=== PATIENT | male | born 1990 | race Two or more races ===

== ENCOUNTER 2022-05-26 18:58 | Emergency (ER) | payer OTHER ==
[~2022-05-26] VITALS: Ht 170.2 cm; Wt 86.0 kg
[2022-05-26 20:26] VITALS: BP 140/84
[2022-05-26] MEDS ORDERED: SODIUM CHLORIDE 0.9% 1,000 ML IV ONE (20:45)
[2022-05-26] MEDS ORDERED: ONDANSETRON HCL 4 MG/2 ML VIAL IV ONE (20:45)
[2022-05-26 21:19] LABS: Basophils # (auto) 0 10 ^3/uL (0-0.2); Basophils % (auto) 0.2 % (0.0-2.0); Eosinophils # (auto) 0 10 ^3/uL (0-0.8); Hematocrit 49.4 % (41.0-53.0); Hemoglobin 16.6 g/dL (13.5-17.5); Lymphocytes # (auto) 1.7 10 ^3/uL (0.4-5.4); Lymphocytes % (auto) 10.3 % (10.0-50.0); Mean Corpuscular Hemoglobin 30.3 pg (28.0-32.0); Mean Corpuscular Hgb Conc. 33.6 g/dL (32.0-36.0); Mean Corpuscular Volume 90.3 fL (80.0-100.0); Monocytes % (auto) 5.8 % (0.0-12.0); Neutrophils # (auto) 13.7 10 ^3/uL (1.6-8.6); Neutrophils % (auto) 83.7 % (37.0-80.0); Nucleated Red Blood Cells % 0.2 %; Red Blood Cells 5.47 10^6/uL (4.5-5.90); Red Cell Distribution Width 13.3 % (11.8-14.3); White Blood Cell 16.4 10^3/uL (4.4-10.8)
[2022-05-26 21:29] LABS: Albumin 4.6 g/dL (3.4-5.0); Calcium 9.7 mg/dL (8.5-10.1); Potassium 4.4 mmol/L (3.5-5.1)
[2022-05-26 21:31] LABS: Bilirubin, Total 0.6 mg/dL (0.2-1.0); Total Protein 7.8 g/dL (6.4-8.2)
[2022-05-26] MEDS ORDERED: MORPHINE SULFATE INJ 2 MG/ml SYRG IV ONE (22:00)
[2022-05-26] MEDS ORDERED: KETOROLAC TROMETH 30 MG/ML 1ML VIAL IV ONE (22:15)
[2022-05-26] MEDS ORDERED: HYDR-4902 PO (22:19)
== END 2022-05-26 22:18 | disposition left against medical advice (07) ==
LOC: ER 18:58
DX: N13.2 Hydronephrosis with renal and ureteral calculous obstruction (principal); N23 Unspecified renal colic
CPT/HCPCS: 36415; 74176; 80053; 84484; 85025; 93005; 96361; 96374; 96375; 99285; J1885; J2405; J7030; 80307; 81001; 87426